=== PATIENT | male | born 1960 | race African-American/Black ===

== ENCOUNTER 2022-10-03 16:32 | Inpatient (IN) | payer MEDICAID, OTHER ==
[~2022-10-03] VITALS: Ht 172.7 cm; Wt 56.7 kg
[2022-10-03] MEDS ORDERED: SODIUM CHLORIDE 0.9% 1000ML BAG (SEPSIS BOLUS) IV ONE (18:00)
[2022-10-03] MEDS ORDERED: NALOXONE HCL 1 MG/ML 2ML VIAL IV ONE (18:00)
[2022-10-03] MEDS ORDERED: DEXTROSE 50% WATER 50ML SYRINGE IV ONE (18:00)
[2022-10-03 18:04] LABS: CLARITY URINE CLOUDY (CLEAR); COLOR URINE DARK YELLOW (YELLOW); KETONES URINE NEGATIVE (NEGATIVE); LEUKOCYTE ESTERASE URINE NEGATIVE (NEGATIVE); NITRITE URINE NEGATIVE (NEGATIVE); OCCULT BLOOD URINE NEGATIVE (NEGATIVE); PROTEIN URINE 1+ (NEGATIVE); SPECIFIC GRAVITY URINE 1.018 (1.005-1.030)
[2022-10-03] MEDS ORDERED: LIDOCAINE HCL/EPINEPHRINE 1%-EPI 1:100,000 20 ML VIAL INFIL ONE (18:15)
[2022-10-03 18:21] LABS: *AMPHETAMINES SCREEN URINE NEGATIVE (NEGATIVE); *BARBITURATES SCREEN URINE NEGATIVE (NEGATIVE); *BENZODIAZEPINES SCREEN URINE NEGATIVE (NEGATIVE); *COCAINE SCREEN URINE PRESUMTIVE POSITIVE (NEGATIVE); CANNABINOID URINE SCREEN NEGATIVE (NEGATIVE); METHADONE URINE SCREEN NEGATIVE (NEGATIVE); OPIATES URINE SCREEN PRESUMTIVE POSITIVE (NEGATIVE); PHENCYCLIDINE URINE SCREEN NEGATIVE (NEGATIVE)
[2022-10-03 18:38] LABS: CHLORIDE 98 mEq/L (98-107)
[2022-10-03 19:04] LABS: HEMATOCRIT. 43.2 % (42.0-52.0); HEMOGLOBIN. 13.4 g/dL (14.0-18.0); MEAN CORPUSCULAR HEMOGLOBIN 27.6 pg (28.0-32.0); MEAN CORPUSCULAR VOLUME 88.8 fL (80.0-94.0); MEAN PLATELET VOLUME 11.2 fl (7.4-10.4); PLATELET 91 x1000/uL (130-400); RED BLOOD CELL COUNT 4.86 mill/uL (4.7-6.1); RED CELL DISTRIBUTION WIDTH 18.5 % (11.6-14.6)
[2022-10-03 19:11] LABS: BG BASE EXCESS 1.7 mmol/L (-2.0-2.0); BG CARBOXYHEMOGLOBIN 1.8 % (0.5-1.5); BG DEOXYHEMOGLOBIN 14.7 % (0.0-5.0); BG FRACTION INSPIRED OXYGEN 21; BG HCO3 ACT 27.3 mmol/L (22.0-26.0); BG METHEMOGLOBIN 0.2 % (0.0-1.5); BG OXYHEMOGLOBIN 83.3 % (94.0-97.0); BG PCO2 46.3 mmHg (35.0-45.0); BG PH 7.388 (7.350-7.450); BG PO2 53.9 mmHg (75.0-100.0); BG SAMPLE SITE LEFT RADIAL; BG VENT MODE ROOM AIR
[2022-10-03 19:20] LABS: NUCLEATED RED BLOOD CELLS 3 /100 WBC; PLATELET ESTIMATE DECREASED
[2022-10-03] MEDS ORDERED: VANCOMYCIN 1G PREMIX 200 ML IV NR (20:00)
[2022-10-03 20:19] LABS: INR 1.7; PARTIAL THROMBOPLASTIN TIME 27.8 sec (23.4-31.0); PROTHROMBIN TIME 17.9 sec (9.6-11.0)
[2022-10-03] MEDS ORDERED: PIPERACILLIN/TAZOBACTAM 3.375GM/50ML PREMIX IV NR (20:30)
[2022-10-03 22:33] VITALS: BP 115/103; PULSE 107; RESP 41; TEMP 97.8
[2022-10-03 23:05] VITALS: BP 134/101; PULSE 100; RESP 23
[2022-10-04] VITALS (16 sets, daily range): BP systolic 104–155; BP diastolic 61–101; PULSE 79–108; RESP 19–47; TEMP 97.5–97.8
[2022-10-04] MEDS ORDERED: ACETAMINOPHEN 325MG TABLET PO PRN
[2022-10-04] MEDS ORDERED: DEXTROSE 50% WATER 50ML SYRINGE IV PRN (01:00)
[2022-10-04] MEDS: HYDROCODONE/ACETAMINOPHEN 10/325MG TABLET PO PRN (01:46)
[2022-10-04] MEDS: FUROSEMIDE 40MG/4ML VIAL IVP SCH ×3 (01:47→20:22)
[2022-10-04] MEDS ORDERED: VANCOMYCIN 1G PREMIX 200 ML IV NR (02:00)
[2022-10-04] MEDS ORDERED: IPRATROPIUM/ALBUTEROL 0.5-3(2.5)MG/3ML NEB HHN PRN ×2 (05:45→09:15)
[2022-10-04] MEDS ORDERED: PIPERACILLIN/TAZOBACTAM 3.375 G in DEXTROSE 5% WATER 50 ML IV SCH (06:00)
[2022-10-04 07:14] LABS: HEMATOCRIT. 42.2 % (42.0-52.0); HEMOGLOBIN. 13.6 g/dL (14.0-18.0); MEAN CORPUSCULAR HEMOGLOBIN 28.1 pg (28.0-32.0); MEAN CORPUSCULAR VOLUME 87.3 fL (80.0-94.0); MEAN PLATELET VOLUME 10.8 fl (7.4-10.4); PLATELET 73 x1000/uL (130-400); RED BLOOD CELL COUNT 4.83 mill/uL (4.7-6.1); RED CELL DISTRIBUTION WIDTH 17.6 % (11.6-14.6)
[2022-10-04] MEDS: BLOOD SUGAR DIAGNOSTIC STRIP TEST SCH ×4 (07:30→20:17)
[2022-10-04 07:39] LABS: CHLORIDE 97 mEq/L (98-107)
[2022-10-04 07:48] LABS: HDL CHOLESTEROL 56 mg/dL (40-59); LDL CHOLESTEROL 67 mg/dL (5-100)
[2022-10-04] MEDS: INSULIN LISPRO 100 UNITS/ML SUBCUT SCH ×4 (08:00→20:17)
[2022-10-04] MEDS: LOSARTAN POTASSIUM 50 MG TABLET PO SCH (08:34)
[2022-10-04] MEDS ORDERED: CARVEDILOL 3.125 MG TABLET PO SCH (09:00)
[2022-10-04 11:09] LABS: BG BASE EXCESS 5.9 mmol/L (-2.0-2.0); BG CARBOXYHEMOGLOBIN 1.4 % (0.5-1.5); BG DEOXYHEMOGLOBIN 1.9 % (0.0-5.0); BG FRACTION INSPIRED OXYGEN 36; BG HCO3 ACT 31.1 mmol/L (22.0-26.0); BG METHEMOGLOBIN 0.3 % (0.0-1.5); BG OXYGEN SATURATION 98.1 % (92.0-98.5); BG OXYHEMOGLOBIN 96.4 % (94.0-97.0); BG PCO2 47.2 mmHg (35.0-45.0); BG PH 7.437 (7.350-7.450); BG PO2 111.1 mmHg (75.0-100.0); BG SAMPLE SITE RIGHT RADIAL; BG TOTAL HEMOGLOBIN 13.8 g/dL (12.0-18.0); BG VENT MODE NASAL CANNULA
[2022-10-04] MEDS: IPRATROPIUM/ALBUTEROL 0.5-3(2.5)MG/3ML NEB HHN SCH ×3 (12:05→21:12)
[2022-10-04] MEDS: CEFTRIAXONE 1,000 MG in DEXTROSE 5% WATER 50 ML IV SCH (12:06)
[2022-10-04] MEDS: SPIRONOLACTONE 25MG TABLET PO SCH ×2 (13:15→13:35)
[2022-10-04] MEDS: AZITHROMYCIN 500 MG in DEXT 5% WATER 250 ML IV SCH (13:34)
[2022-10-04] MEDS ORDERED: THIAMINE HCL 100 MG/1 ML 2ML VIAL IM NR (14:30)
[2022-10-04] MEDS ORDERED: FOLIC ACID 1 MG in SODIUM CHLORIDE 0.9% 500 ML IV NR (15:00)
[2022-10-04] MEDS: VANCOMYCIN 750MG PREMIX 150 ML IV SCH (15:51)
[2022-10-04 18:43] LABS: T4 FREE 0.93 ng/dL (0.76-1.46)
[2022-10-04 18:57] LABS: HEPATITIS B SURFACE ANTIGEN NEGATIVE
[2022-10-04 19:58] LABS: VITAMIN B12 SERUM > 2000.0 pg/mL (211-911)
[2022-10-05] VITALS (14 sets, daily range): BP systolic 101–134; BP diastolic 66–87; PULSE 81–100; RESP 14–31; TEMP 97.5–98.6; O2SAT 94–98
[2022-10-05] MEDS: IPRATROPIUM/ALBUTEROL 0.5-3(2.5)MG/3ML NEB HHN SCH ×6 (00:34→20:44)
[2022-10-05] MEDS: HYDROCODONE/ACETAMINOPHEN 10/325MG TABLET PO PRN ×2 (01:09→22:50)
[2022-10-05] MEDS: VANCOMYCIN 750MG PREMIX 150 ML IV SCH ×2 (03:35→16:00)
[2022-10-05 07:11] LABS: NUCLEATED RED BLOOD CELLS 5 /100 WBC; PLATELET ESTIMATE DECREASED
[2022-10-05 07:17] LABS: HEMATOCRIT. 42.2 % (42.0-52.0); HEMOGLOBIN. 13.6 g/dL (14.0-18.0); MEAN CORPUSCULAR VOLUME 86.9 fL (80.0-94.0); RED BLOOD CELL COUNT 4.85 mill/uL (4.7-6.1); RED CELL DISTRIBUTION WIDTH 17.5 % (11.6-14.6)
[2022-10-05 07:30] LABS: CHLORIDE 94 mEq/L (98-107)
[2022-10-05] MEDS: INSULIN LISPRO 100 UNITS/ML SUBCUT SCH ×4 (08:00→21:21)
[2022-10-05] MEDS: BLOOD SUGAR DIAGNOSTIC STRIP TEST SCH ×4 (08:15→20:57)
[2022-10-05] MEDS: SPIRONOLACTONE 25MG TABLET PO SCH (08:16)
[2022-10-05] MEDS: LOSARTAN POTASSIUM 50 MG TABLET PO SCH (08:16)
[2022-10-05] MEDS: FUROSEMIDE 40MG/4ML VIAL IVP SCH ×2 (08:16→21:21)
[2022-10-05] MEDS: THIAMINE HCL 100 MG/1 ML 2ML VIAL IM SCH (08:17)
[2022-10-05 08:52] LABS: BG CARBOXYHEMOGLOBIN 1.1 % (0.5-1.5); BG DEOXYHEMOGLOBIN 7.8 % (0.0-5.0); BG FRACTION INSPIRED OXYGEN 34; BG HCO3 ACT 39.9 mmol/L (22.0-26.0); BG METHEMOGLOBIN 0.1 % (0.0-1.5); BG OXYGEN SATURATION 92.1 % (92.0-98.5); BG PCO2 54.1 mmHg (35.0-45.0); BG PH 7.486 (7.350-7.450); BG PO2 65.2 mmHg (75.0-100.0); BG SAMPLE SITE RIGHT BRACHIAL; BG TOTAL HEMOGLOBIN 14.4 g/dL (12.0-18.0); BG VENT MODE NASAL CANNULA
[2022-10-05 09:23] LABS: NUCLEATED RED BLOOD CELLS 1 /100 WBC; PLATELET ESTIMATE SLIGHTLY DECREASED
[2022-10-05 09:24] LABS: PLATELET 98 x1000/uL (130-400)
[2022-10-05] MEDS: CEFTRIAXONE 1,000 MG in DEXTROSE 5% WATER 50 ML IV SCH (12:25)
[2022-10-05] MEDS: AZITHROMYCIN 500 MG in DEXT 5% WATER 250 ML IV SCH (14:58)
[2022-10-05] MEDS ORDERED: NALOXONE HCL 0.4MG/ML VIAL IV PRN (17:30)
[2022-10-06] VITALS (12 sets, daily range): BP systolic 99–133; BP diastolic 62–75; PULSE 63–97; RESP 16–24; TEMP 97–97.9; O2SAT 95–96
[2022-10-06] MEDS: IPRATROPIUM/ALBUTEROL 0.5-3(2.5)MG/3ML NEB HHN SCH ×6 (02:05→21:30)
[2022-10-06 04:05] LABS: CHLORIDE 96 mEq/L (98-107)
[2022-10-06] MEDS: VANCOMYCIN 750MG PREMIX 150 ML IV SCH (04:35)
[2022-10-06] MEDS: BLOOD SUGAR DIAGNOSTIC STRIP TEST SCH ×4 (07:00→21:00)
[2022-10-06] MEDS: INSULIN LISPRO 100 UNITS/ML SUBCUT SCH ×4 (07:49→21:00)
[2022-10-06 09:12] LABS: BG BASE EXCESS 13.4 mmol/L (-2.0-2.0); BG CARBOXYHEMOGLOBIN 1.2 % (0.5-1.5); BG FRACTION INSPIRED OXYGEN 28; BG METHEMOGLOBIN 0.3 % (0.0-1.5); BG OXYHEMOGLOBIN 95.5 % (94.0-97.0); BG PCO2 58.8 mmHg (35.0-45.0); BG PH 7.451 (7.350-7.450); BG PO2 86.8 mmHg (75.0-100.0); BG SAMPLE SITE RIGHT RADIAL; BG VENT MODE NASAL CANNULA
[2022-10-06] MEDS: FUROSEMIDE 40MG/4ML VIAL IVP SCH ×2 (09:12→22:15)
[2022-10-06] MEDS: SPIRONOLACTONE 25MG TABLET PO SCH (09:13)
[2022-10-06] MEDS: LOSARTAN POTASSIUM 50 MG TABLET PO SCH (09:13)
[2022-10-06] MEDS: CEFTRIAXONE 1,000 MG in DEXTROSE 5% WATER 50 ML IV SCH (12:38)
[2022-10-06] MEDS: AZITHROMYCIN 500 MG in DEXT 5% WATER 250 ML IV SCH (13:36)
[2022-10-06 14:59] LABS: HEMATOCRIT. 42.9 % (42.0-52.0); HEMOGLOBIN. 13.8 g/dL (14.0-18.0); MEAN CORPUSCULAR HEMOGLOBIN 27.7 pg (28.0-32.0); MEAN CORPUSCULAR VOLUME 86.1 fL (80.0-94.0); MEAN PLATELET VOLUME 9.5 fl (7.4-10.4); PLATELET 103 x1000/uL (130-400); RED BLOOD CELL COUNT 4.98 mill/uL (4.7-6.1); RED CELL DISTRIBUTION WIDTH 17.9 % (11.6-14.6)
[2022-10-06] MEDS: THIAMINE HCL 100 MG/1 ML 2ML VIAL IM SCH (16:50)
[2022-10-07] VITALS (11 sets, daily range): BP systolic 93–113; BP diastolic 55–73; PULSE 74–104; RESP 18–22; TEMP 96.3–98.8
[2022-10-07 00:30] LABS: PLATELET ESTIMATE SLIGHTLY DECREASED
[2022-10-07] MEDS: IPRATROPIUM/ALBUTEROL 0.5-3(2.5)MG/3ML NEB HHN SCH ×5 (00:55→21:06)
[2022-10-07 07:19] LABS: HEMATOCRIT. 42.2 % (42.0-52.0); HEMOGLOBIN. 13.7 g/dL (14.0-18.0); MEAN CORPUSCULAR VOLUME 86.3 fL (80.0-94.0); MEAN PLATELET VOLUME 9.7 fl (7.4-10.4); PLATELET 111 x1000/uL (130-400); RED BLOOD CELL COUNT 4.89 mill/uL (4.7-6.1); RED CELL DISTRIBUTION WIDTH 17.7 % (11.6-14.6)
[2022-10-07 07:44] LABS: CHLORIDE 94 mEq/L (98-107)
[2022-10-07] MEDS: BLOOD SUGAR DIAGNOSTIC STRIP TEST SCH ×4 (08:33→21:00)
[2022-10-07] MEDS: LOSARTAN POTASSIUM 50 MG TABLET PO SCH (09:00)
[2022-10-07] MEDS: FUROSEMIDE 40MG/4ML VIAL IVP SCH (09:33)
[2022-10-07] MEDS: SPIRONOLACTONE 25MG TABLET PO SCH (09:33)
[2022-10-07] MEDS: INSULIN LISPRO 100 UNITS/ML SUBCUT SCH ×4 (09:33→21:00)
[2022-10-07] MEDS ORDERED: ACETAZOLAMIDE SODIUM 500MG/VIAL IV NR (11:30)
[2022-10-07 12:17] LABS: BG CARBOXYHEMOGLOBIN 1.6 % (0.5-1.5); BG DEOXYHEMOGLOBIN 3.7 % (0.0-5.0); BG FRACTION INSPIRED OXYGEN 28; BG HCO3 ACT 42.1 mmol/L (22.0-26.0); BG METHEMOGLOBIN 0.3 % (0.0-1.5); BG OXYGEN SATURATION 96.2 % (92.0-98.5); BG OXYHEMOGLOBIN 94.4 % (94.0-97.0); BG PCO2 60.2 mmHg (35.0-45.0); BG PH 7.463 (7.350-7.450); BG PO2 78.3 mmHg (75.0-100.0); BG SAMPLE SITE RIGHT RADIAL; BG TOTAL HEMOGLOBIN 15.6 g/dL (12.0-18.0); BG VENT MODE NASAL CANNULA
[2022-10-07] MEDS: THIAMINE HCL 100MG TABLET PO SCH (12:38)
[2022-10-07] MEDS: CEFTRIAXONE 1,000 MG in DEXTROSE 5% WATER 50 ML IV SCH (12:39)
[2022-10-07] MEDS: FOLIC ACID 1MG TABLET PO SCH (12:39)
[2022-10-07] MEDS: AZITHROMYCIN 500 MG in DEXT 5% WATER 250 ML IV SCH (14:16)
[2022-10-07 14:33] LABS: NUCLEATED RED BLOOD CELLS 1 /100 WBC; PLATELET ESTIMATE SLIGHTLY DECREASED
[2022-10-07] MEDS ORDERED: VANCOMYCIN 750MG PREMIX 150 ML IV SCH (18:00)
[2022-10-07] MEDS: FUROSEMIDE 40MG TABLET PO SCH (23:01)
[2022-10-08] VITALS (12 sets, daily range): BP systolic 90–102; BP diastolic 56–72; PULSE 90–101; RESP 18–22; TEMP 96.8–98.3; O2SAT 94–99
[2022-10-08] MEDS: IPRATROPIUM/ALBUTEROL 0.5-3(2.5)MG/3ML NEB HHN SCH ×6 (00:55→20:36)
[2022-10-08] MEDS: BLOOD SUGAR DIAGNOSTIC STRIP TEST SCH ×4 (06:50→21:11)
[2022-10-08] MEDS: INSULIN LISPRO 100 UNITS/ML SUBCUT SCH ×4 (08:10→21:00)
[2022-10-08] MEDS: THIAMINE HCL 100MG TABLET PO SCH (08:13)
[2022-10-08] MEDS: FOLIC ACID 1MG TABLET PO SCH (08:13)
[2022-10-08] MEDS: FUROSEMIDE 40MG TABLET PO SCH ×2 (08:13→21:11)
[2022-10-08 08:59] LABS: BG CARBOXYHEMOGLOBIN 1.3 % (0.5-1.5); BG DEOXYHEMOGLOBIN 5.4 % (0.0-5.0); BG FRACTION INSPIRED OXYGEN 21; BG METHEMOGLOBIN 0.3 % (0.0-1.5); BG OXYGEN SATURATION 94.5 % (92.0-98.5); BG PCO2 43.4 mmHg (35.0-45.0); BG PH 7.411 (7.350-7.450); BG PO2 68.5 mmHg (75.0-100.0); BG SAMPLE SITE RIGHT BRACHIAL; BG VENT MODE ROOM AIR
[2022-10-08] MEDS ORDERED: FUROSEMIDE 40MG/4ML VIAL IVP SCH (09:00)
[2022-10-08] MEDS: LOSARTAN POTASSIUM 50 MG TABLET PO SCH (09:00)
[2022-10-08] MEDS: SPIRONOLACTONE 25MG TABLET PO SCH (09:00)
[2022-10-08] MEDS ORDERED: AZITHROMYCIN 500 MG TABLET PO SCH (09:00)
[2022-10-08 09:01] LABS: BASOPHILS % 0.2 % (0.0-2.0); EOSINOPHILS % 3.4 % (0.0-5.0); HEMATOCRIT. 42.4 % (42.0-52.0); HEMOGLOBIN. 13.5 g/dL (14.0-18.0); LYMPHOCYTES % 9.8 % (20.0-50.0); MEAN CORPUSCULAR HEMOGLOBIN 27.6 pg (28.0-32.0); MEAN CORPUSCULAR VOLUME 86.6 fL (80.0-94.0); MEAN PLATELET VOLUME 9.4 fl (7.4-10.4); MONOCYTES % 13.6 % (2.0-8.0); PLATELET 122 x1000/uL (130-400); RED BLOOD CELL COUNT 4.89 mill/uL (4.7-6.1); RED CELL DISTRIBUTION WIDTH 18.1 % (11.6-14.6)
[2022-10-08] MEDS: CEFTRIAXONE 1,000 MG in DEXTROSE 5% WATER 50 ML IV SCH (11:29)
[2022-10-08] MEDS: LEVOFLOXACIN 250MG TABLET PO SCH (17:24)
[2022-10-09] VITALS (10 sets, daily range): BP systolic 81–111; BP diastolic 48–76; PULSE 63–98; RESP 18–20; TEMP 97.1–98.3; O2SAT 95–99
[2022-10-09] MEDS: IPRATROPIUM/ALBUTEROL 0.5-3(2.5)MG/3ML NEB HHN SCH ×5 (01:40→21:41)
[2022-10-09] MEDS: BLOOD SUGAR DIAGNOSTIC STRIP TEST SCH ×4 (06:39→21:04)
[2022-10-09] MEDS: INSULIN LISPRO 100 UNITS/ML SUBCUT SCH ×4 (08:10→21:00)
[2022-10-09] MEDS: FUROSEMIDE 40MG TABLET PO SCH ×2 (08:39→20:41)
[2022-10-09] MEDS: THIAMINE HCL 100MG TABLET PO SCH (08:39)
[2022-10-09] MEDS: FOLIC ACID 1MG TABLET PO SCH (08:39)
[2022-10-09] MEDS: SPIRONOLACTONE 25MG TABLET PO SCH (08:40)
[2022-10-09] MEDS: LOSARTAN POTASSIUM 50 MG TABLET PO SCH (08:44)
[2022-10-09 09:31] LABS: BG BASE EXCESS 1.9 mmol/L (-2.0-2.0); BG CARBOXYHEMOGLOBIN 0.9 % (0.5-1.5); BG DEOXYHEMOGLOBIN 3.3 % (0.0-5.0); BG FRACTION INSPIRED OXYGEN 21; BG HCO3 ACT 26.8 mmol/L (22.0-26.0); BG METHEMOGLOBIN 0.3 % (0.0-1.5); BG OXYGEN SATURATION 96.7 % (92.0-98.5); BG OXYHEMOGLOBIN 95.5 % (94.0-97.0); BG PH 7.413 (7.350-7.450); BG PO2 84.4 mmHg (75.0-100.0); BG SAMPLE SITE RIGHT BRACHIAL; BG TOTAL HEMOGLOBIN 14.8 g/dL (12.0-18.0); BG VENT MODE ROOM AIR
[2022-10-09] MEDS ORDERED: IOHEXOL-350 100 ML BOTTLE ONE (11:35)
[2022-10-09] MEDS: LEVOFLOXACIN 250MG TABLET PO SCH (12:18)
[2022-10-09] MEDS: MULTIVITAMINS,THER W-MINERALS TABLET PO SCH (13:43)
[2022-10-09] MEDS: HYDROCODONE/ACETAMINOPHEN 10/325MG TABLET PO PRN (20:42)
[2022-10-09] MEDS ORDERED: ZOLPIDEM TARTRATE 5MG TABLET PO PRN (21:00)
[2022-10-09 21:57] LABS: HEMATOCRIT. 42.2 % (42.0-52.0); HEMOGLOBIN. 13.7 g/dL (14.0-18.0); MEAN CORPUSCULAR HEMOGLOBIN 28.1 pg (28.0-32.0); MEAN CORPUSCULAR VOLUME 86.4 fL (80.0-94.0); MEAN PLATELET VOLUME 9.1 fl (7.4-10.4); PLATELET 123 x1000/uL (130-400); RED BLOOD CELL COUNT 4.89 mill/uL (4.7-6.1); RED CELL DISTRIBUTION WIDTH 18.6 % (11.6-14.6)
[2022-10-09 22:10] LABS: CHLORIDE 100 mEq/L (98-107)
[2022-10-09 23:39] LABS: PLATELET ESTIMATE SLIGHTLY DECREASED
[2022-10-10] VITALS (12 sets, daily range): BP systolic 96–105; BP diastolic 45–70; PULSE 79–103; RESP 18–22; TEMP 97.1–98.2
[2022-10-10] MEDS: IPRATROPIUM/ALBUTEROL 0.5-3(2.5)MG/3ML NEB HHN SCH ×6 (00:50→21:04)
[2022-10-10] MEDS: HYDROCODONE/ACETAMINOPHEN 10/325MG TABLET PO PRN ×2 (02:38→20:35)
[2022-10-10] MEDS: BLOOD SUGAR DIAGNOSTIC STRIP TEST SCH ×4 (05:57→20:35)
[2022-10-10] MEDS: INSULIN LISPRO 100 UNITS/ML SUBCUT SCH ×4 (05:58→20:36)
[2022-10-10 07:37] LABS: CHLORIDE 100 mEq/L (98-107)
[2022-10-10 08:30] LABS: BG BASE EXCESS 2.9 mmol/L (-2.0-2.0); BG CARBOXYHEMOGLOBIN 1.6 % (0.5-1.5); BG FRACTION INSPIRED OXYGEN 28; BG METHEMOGLOBIN 0.4 % (0.0-1.5); BG PCO2 44.7 mmHg (35.0-45.0); BG PH 7.415 (7.350-7.450); BG PO2 135.1 mmHg (75.0-100.0); BG SAMPLE SITE LEFT BRACHIAL; BG TOTAL HEMOGLOBIN 14.5 g/dL (12.0-18.0); BG VENT MODE NASAL CANNULA
[2022-10-10] MEDS: THIAMINE HCL 100MG TABLET PO SCH (08:50)
[2022-10-10] MEDS: SPIRONOLACTONE 25MG TABLET PO SCH (08:51)
[2022-10-10] MEDS: MULTIVITAMINS,THER W-MINERALS TABLET PO SCH (08:51)
[2022-10-10] MEDS: LOSARTAN POTASSIUM 50 MG TABLET PO SCH (08:51)
[2022-10-10] MEDS: FOLIC ACID 1MG TABLET PO SCH (08:51)
[2022-10-10] MEDS: FUROSEMIDE 40MG TABLET PO SCH ×2 (08:54→21:00)
[2022-10-10] MEDS ORDERED: FURO-151 MT (11:46)
[2022-10-10] MEDS ORDERED: CARV3.1242 MT (11:46)
[2022-10-10] MEDS ORDERED: LOSA25TA26 MT (11:46)
[2022-10-10] MEDS ORDERED: FLUT1DIS3 INH (11:46)
[2022-10-10] MEDS ORDERED: SPIR25TA PO (11:46)
[2022-10-10] MEDS ORDERED: ALBU18HF2 IH (11:46)
[2022-10-10] MEDS: LEVOFLOXACIN 250MG TABLET PO SCH (12:11)
[2022-10-11] VITALS (9 sets, daily range): BP systolic 83–112; BP diastolic 59–79; PULSE 68–96; RESP 16–22; TEMP 97.1–98.6; O2SAT 97
[2022-10-11] MEDS: IPRATROPIUM/ALBUTEROL 0.5-3(2.5)MG/3ML NEB HHN SCH ×3 (00:42→14:11)
[2022-10-11] MEDS: MIDODRINE HCL 5MG TABLET PO SCH ×3 (00:51→17:14)
[2022-10-11] MEDS: INSULIN LISPRO 100 UNITS/ML SUBCUT SCH ×3 (06:23→17:10)
[2022-10-11] MEDS: BLOOD SUGAR DIAGNOSTIC STRIP TEST SCH ×3 (06:23→16:43)
[2022-10-11 08:36] LABS: BG BASE EXCESS 3.7 mmol/L (-2.0-2.0); BG CARBOXYHEMOGLOBIN 1.6 % (0.5-1.5); BG DEOXYHEMOGLOBIN 5.7 % (0.0-5.0); BG FRACTION INSPIRED OXYGEN 21; BG HCO3 ACT 28.4 mmol/L (22.0-26.0); BG METHEMOGLOBIN 0.2 % (0.0-1.5); BG OXYGEN SATURATION 94.2 % (92.0-98.5); BG OXYHEMOGLOBIN 92.5 % (94.0-97.0); BG PCO2 43.2 mmHg (35.0-45.0); BG PH 7.436 (7.350-7.450); BG PO2 67.6 mmHg (75.0-100.0); BG SAMPLE SITE RIGHT RADIAL; BG TOTAL HEMOGLOBIN 14.5 g/dL (12.0-18.0); BG VENT MODE ROOM AIR
[2022-10-11] MEDS ORDERED: HEPARIN 1000 UNITS/ML 10ML ONE (08:59)
[2022-10-11] MEDS ORDERED: LIDOCAINE HCL 1% 20ML VIAL (Pyxis) INJ ONE (08:59)
[2022-10-11] MEDS ORDERED: IODIXANOL 320MG/ML 100 ML BOTTLE IV ONE (08:59)
[2022-10-11] MEDS: FUROSEMIDE 40MG TABLET PO SCH (09:00)
[2022-10-11] MEDS: LOSARTAN POTASSIUM 50 MG TABLET PO SCH (09:00)
[2022-10-11] MEDS: FOLIC ACID 1MG TABLET PO SCH (09:06)
[2022-10-11] MEDS: MULTIVITAMINS,THER W-MINERALS TABLET PO SCH (09:06)
[2022-10-11] MEDS: THIAMINE HCL 100MG TABLET PO SCH (09:09)
[2022-10-11] MEDS: SPIRONOLACTONE 25MG TABLET PO SCH (09:22)
[2022-10-11] MEDS ORDERED: FENTANYL CITRATE/PF 50MCG/ML 2ML VIAL ONE (10:02)
[2022-10-11] MEDS ORDERED: MIDAZOLAM HCL 2 MG/2 ML VIAL ONE (10:03)
[2022-10-11] MEDS: LEVOFLOXACIN 250MG TABLET PO SCH (12:27)
[2022-10-11 12:46] LABS: CHLORIDE 98 mEq/L (98-107)
== END 2022-10-11 17:25 | disposition home health service (06) | DRG 710 ==
LOC: ER 16:32 → 5EST 21:15 → EDBEDREQTM 21:21 → EDBEDREQ 21:21 → ENRESERV 21:24 → 7WST 10-05 17:25 → 7EST 10-09 11:00
PROVIDERS: ADMIT Internal Medicine; ATTEND Internal Medicine
PROC: 0W9930Z Drainage of Right Pleural Cavity with Drainage Device, Percutaneous Approach (ICD-10-PCS; 2022-10-03)
PROC: 5A09357 Assistance with Respiratory Ventilation, Less than 24 Consecutive Hours, Continuous Positive Airway Pressure (ICD-10-PCS; principal; 2022-10-04)
PROC: 5A09357 Assistance with Respiratory Ventilation, Less than 24 Consecutive Hours, Continuous Positive Airway Pressure (ICD-10-PCS; 2022-10-05)
PROC: 047L3ZZ Dilation of Left Femoral Artery, Percutaneous Approach (ICD-10-PCS; 2022-10-11)
PROC: 047Q3ZZ Dilation of Left Anterior Tibial Artery, Percutaneous Approach (ICD-10-PCS; 2022-10-11)
PROC: B41G1ZZ Fluoroscopy of Left Lower Extremity Arteries using Low Osmolar Contrast (ICD-10-PCS; 2022-10-11)
DX: A41.9 Sepsis, unspecified organism (principal); J96.01 Acute respiratory failure with hypoxia; I50.23 Acute on chronic systolic (congestive) heart failure; E43 Unspecified severe protein-calorie malnutrition; I21.A1 Myocardial infarction type 2; E11.52 Type 2 diabetes mellitus with diabetic peripheral angiopathy with gangrene; D69.6 Thrombocytopenia, unspecified; R64 Cachexia; E11.649 Type 2 diabetes mellitus with hypoglycemia without coma; E87.29 Other acidosis; J68.0 Bronchitis and pneumonitis due to chemicals, gases, fumes and vapors; I42.0 Dilated cardiomyopathy; J93.9 Pneumothorax, unspecified; F17.210 Nicotine dependence, cigarettes, uncomplicated; F19.10 Other psychoactive substance abuse, uncomplicated; F14.10 Cocaine abuse, uncomplicated; E11.621 Type 2 diabetes mellitus with foot ulcer; Z20.822 Contact with and (suspected) exposure to COVID-19; E86.0 Dehydration; L97.509 Non-pressure chronic ulcer of other part of unspecified foot with unspecified severity; Z88.8 Allergy status to other drugs, medicaments and biological substances; Z79.899 Other long term (current) drug therapy; Y92.89 Other specified places as the place of occurrence of the external cause; Z68.1 Body mass index [BMI] 19.9 or less, adult
CPT/HCPCS: 36415; 36600; 71045; 75635; 76604; 76700; 80048; 80053; 80061; 80202; 80305; 80320; 81003; 82040; 82375; 82436; 82465; 82607; 82746; 82805; 82962; 83036; 83605; 83615; 83880; 83986; 84439; 84443; 84478; 84484; 85025; 85347; 86705; 86709; 86803; 87116; 87340; 87426; 88108; 88312; 93005; 93306; 93923; 93970; 94640; 94660; 97162; 97530; 99291; A6261; C1893; J0456; J0696; J1120; J1644; J1815; J1940; J2250; J2310; J2543; J3010; J3370; J3411; J3490; J7030; J7040; J7060; L1830; Q9967; G0480